=== PATIENT | male | born 1980 | race Caucasian/White ===

== ENCOUNTER 2021-04-18 19:30 | Emergency (ER) | payer OTHER ==
[~2021-04-18] VITALS: Ht 172.7 cm; Wt 93.8 kg
[2021-04-18 20:02] VITALS: BP 139/81
--- NOTE | 2021-04-18 20:17 | NUR ---
increased to HAYDEE level 4, as pt will need sutures after it was looked at.
[2021-04-18] MEDS ORDERED: TETanus/Pertussis (Acell)/Diphther VAC/PF (Tdap-Adult) 0.5ml syringe IMVAC ONE (20:30)
[2021-04-18] MEDS ORDERED: LIDOcaine 1% W/epiNEPHrine 1:200,000 10ml vial IJ ONE (20:30)
[2021-04-18] MEDS ORDERED: bacitracin 15gm ointment TP ONE (20:30)
[2021-04-18] MEDS ORDERED: AMOX-422 PO (20:55)
== END 2021-04-18 21:44 | disposition home or self-care (01) ==
LOC: ER 19:31
DX: S61.511A Laceration without foreign body of right wrist, initial encounter (principal); Z79.2 Long term (current) use of antibiotics; W54.0XXA Bitten by dog, initial encounter; Y93.89 Activity, other specified; Y92.89 Other specified places as the place of occurrence of the external cause; Y99.8 Other external cause status
CPT/HCPCS: 12001; 90471; 90715; 99283